=== PATIENT | female | born 1990 | race Caucasian/White ===

== ENCOUNTER 2020-02-01 22:19 | Emergency (ER) | payer OTHER ==
[~2020-02-01] VITALS: Ht 167.6 cm; Wt 86.2 kg
[2020-02-01 22:25] VITALS: BP 129/83
[2020-02-01] MEDS ORDERED: LIDOCAINE 1%-EPI 1:100,000 20 ML VIAL ONE (22:31)
--- NOTE | 2020-02-01 22:46 | NUR ---
Patient discharged to home in stable condition. Written and verbal after care instructions given. Patient verbalizes understanding of instruction. Pt ambulatory with a steady gait
== END 2020-02-01 22:46 | disposition home or self-care (01) ==
LOC: ER 22:23
DX: S01.511A Laceration without foreign body of lip, initial encounter (principal); F41.9 Anxiety disorder, unspecified; Z60.2 Problems related to living alone; W54.0XXA Bitten by dog, initial encounter; Y93.89 Activity, other specified; Y92.89 Other specified places as the place of occurrence of the external cause; Y99.8 Other external cause status
CPT/HCPCS: 40650; 99284; J3490

== ENCOUNTER 2020-02-07 19:57 | Emergency (ER) | payer OTHER ==
[~2020-02-07] VITALS: Ht 167.6 cm; Wt 86.2 kg
[2020-02-07 20:00] VITALS: BP 127/75
== END 2020-02-07 20:19 | disposition home or self-care (01) ==
LOC: ER 19:58
DX: S01.511D Laceration without foreign body of lip, subsequent encounter (principal); Z60.2 Problems related to living alone; W54.0XXD Bitten by dog, subsequent encounter